=== PATIENT | female | born 1995 | race Caucasian/White ===

== ENCOUNTER 2017-09-26 08:00 | Inpatient (IN) | payer OTHER, SELFPAY ==
[2017-09-26] MEDS: Lactated Ringers 1,000 ML 50 ML IV ×2 (08:45→09:43)
--- NOTE | 2017-09-26 08:48 | PCM.HP.OB ---
- Problem List (1) GBS bacteriuria Status: Acute History Date of Admission: 09/26/17 Final ANUJA: 10/03/17 Final ANUJA Source: US <20 weeks Gestational age: 39 Weeks and 0 Days History of this : No antepartum complications noted. Paient reports small gush of clear fluid at 2130 last night with progressively stronger and more regular contractions. Contractions now q 3 minutes apart. Patient reports +FM. Pertinent Past Medical History: Noncontributory Allergies No Known Allergies Allergy (Verified 10/15/15 09:17) PNV, Iron Supplement Smoking Status: Never smoker Alcohol: None Drug Use: none Number of Fetus(es): 1 Review of Systems Constitutional: Denies: Chills, Fever, Weight Change HEENT: Denies: Head Aches, Sinus Congestion, Sinus Drainage Cardiovascular: Denies: Chest Pain, Palpitations Respiratory: Denies: Cough, Shortness of breath at rest, Sputum production Gastrointestinal: Denies: Abdominal Pain, Nausea, Vomiting Genitourinary: Denies: Dysuria Gynecological: Reports: Vaginal discharge - Small amount clear fluid - c/w possible SROM of amniotic sac Musculoskeletal: Denies: Joint Pain, Joint Tenderness Skin: Denies: Rash, Wounds Neurological: Denies: Numbness, Tingling, Focal weakness Psychiatric: Denies: Anxiety, Depression, Homicidal Ideations, Suicidal Ideations Hematologic/ Lymphatic: Denies: Easy Bruising, Easy Bleeding Physical Exam General: Alert, Oriented x3, No apparent distress Cardiovascular: Regular rate, Regular Rhythm Lungs: Normal air movement Abdomen: Non Tender, Gravid, Appropriate for Gestational Age Extremities:: No edema, Normal pulses Estimated gestational size: Appropriate for gestational size Presentation: Cephalic Cervix Dilation (cm): 6 - Per switchboard operator supervisor Station: 0 Effacement (%): 100 Assessment/Plan Active and Suspected Problems GBS bacteriuria (Acute) A: 22 y/o @ 39 weeks by 1st trimester ultrasound dating P: 1) Admit patient for labor 2) Patient desires epidural - start IV, draw CBC, administer IV fluid bolus of LR 3) Anticipate 4) Dr. Dwaine CISNEROS aware of admission and is in agreement with plan Anahy Fan APRN-EARNEST
[2017-09-26 08:49] VITALS: BMI 25.1
[2017-09-26 08:50] LABS: ROM Internal Control Test YES-OK TO RESULT pt. (Internal QC)
[2017-09-26 08:51] LABS: ROM Patient Test POSITIVE (Negative)
--- NOTE | 2017-09-26 09:01 | HP.PCM_ITS ---
- Problem List (1) GBS bacteriuria Status: Acute History Date of Admission: 09/26/17 Final ANUJA: 10/03/17 Final ANUJA Source: US <20 weeks Gestational age: 39 Weeks and 0 Days History of this : No antepartum complications noted. Paient reports small gush of clear fluid at 2130 last night with progressively stronger and more regular contractions. Contractions now q 3 minutes apart. Patient reports +FM. Pertinent Past Medical History: Noncontributory Allergies No Known Allergies Allergy (Verified 10/15/15 09:17) PNV, Iron Supplement Smoking Status: Never smoker Alcohol: None Drug Use: none Number of Fetus(es): 1 Review of Systems Constitutional: Denies: Chills, Fever, Weight Change HEENT: Denies: Head Aches, Sinus Congestion, Sinus Drainage Cardiovascular: Denies: Chest Pain, Palpitations Respiratory: Denies: Cough, Shortness of breath at rest, Sputum production Gastrointestinal: Denies: Abdominal Pain, Nausea, Vomiting Genitourinary: Denies: Dysuria Gynecological: Reports: Vaginal discharge - Small amount clear fluid - c/w possible SROM of amniotic sac Musculoskeletal: Denies: Joint Pain, Joint Tenderness Skin: Denies: Rash, Wounds Neurological: Denies: Numbness, Tingling, Focal weakness Psychiatric: Denies: Anxiety, Depression, Homicidal Ideations, Suicidal Ideations Hematologic/ Lymphatic: Denies: Easy Bruising, Easy Bleeding Physical Exam General: Alert, Oriented x3, No apparent distress Cardiovascular: Regular rate, Regular Rhythm Lungs: Normal air movement Abdomen: Non Tender, Gravid, Appropriate for Gestational Age Extremities:: No edema, Normal pulses Estimated gestational size: Appropriate for gestational size Presentation: Cephalic Cervix Dilation (cm): 6 - Per tissue specialist Station: 0 Effacement (%): 100 Assessment/Plan Active and Suspected Problems GBS bacteriuria (Acute) A: 22 y/o @ 39 weeks by 1st trimester ultrasound dating P: 1) Admit patient for labor 2) Patient desires epidural - start IV, draw CBC, administer IV fluid bolus of LR 3) Anticipate 4) Dr. Dwaine ICSNEROS aware of admission and is in agreement with plan Anahy Fan APRN-EARNEST
[2017-09-26 09:11] LABS: Hematocrit 35.5 % (37-47); Hemoglobin 12.2 g/dl (12.0-15.0); Mean Corp Hgb Conc 34.4 g/gl (32-36); Mean Corpuscular Hgb 28.8 pg (27.0-32.0); Mean Corpuscular Volume 83.9 fL (81-99); Mean Platelet Vol. 10.3 fl (6.2-12.0); Platelet Count 206 K/mm3 (150-450); RBC Distribution Width CV 12.9 % (11.6-14.6); RBC Distribution Width SD 38.8 fl (35.1-43.9); Red Blood Count 4.23 M/mm3 (4.2-5.4); White Blood Count 15.2 K/mm3 (4.4-11.0)
[2017-09-26 09:12] LABS: Scan Indicated on CBC? Y/N NO
[2017-09-26] MEDS: fentaNYL-bupivacaine (epidural) 100 ML BAG EPIDURAL (10:07)
[2017-09-26] MEDS: Oxytocin 30 units/NS 500 ml 30 UNITS/500 ML IV.SOLN 334 UNITS IV (10:34)
[2017-09-26] MEDS: Methylergonovine 0.2 MG/ML Ampul IM (10:44)
[2017-09-26] MEDS: Oxytocin 30 units/NS 500 ml 30 UNITS/500 ML IV.SOLN 167 UNITS IV (10:52)
--- NOTE | 2017-09-26 11:10 | PCM.OB.VAG ---
- Problem List (1) GBS bacteriuria Status: Resolved Vaginal Delivery Maternal Presentation: Active Labor Patient presented to [facility] reporting SROM at 2130 for clear fluid. Patient also having ctx q 2-5 minutes apart at admission and found to be dilated 6/100/0. Patient progressed uneventfully to C/C/+1 after epidural placement and had urge to push. Amniotic Membrane Rupture Type: Spontaneous at home Rupture of Membrane time: 09/25/17 @ 2130 Amniotic Fluid Description: Clear Final ANUJA: 10/03/17 Final ANUJA Source: US <20 weeks Gestational age: 39 Weeks and 0 Days Date of Procedure: 09/26/17 Pre-Operative Diagnosis: Active Labor, PROM @ 39 weeks Post-Operative Diagnosis: NSVE of viable male Surgery/ Procedure Performed: Spontaneous Vaginal Delivery Anesthesiologist: Debbie Green Type of Anesthesia: Epidural Description of Procedure: Patient pushed well in hands and knees position and delivered viable male infant over intact perineum. head delivered OA, restituted to MAGY then to LOT. Compound posterior hand noted with delivery. shoulders delivered without difficulty followed by body. had spontaneous cry and respirations. Apgars 9 and 9. weight pending. placed [id number] with patient where the baby was dried and stimulated. Signs of placenta separation noted via brisk gush of red blood. Placenta delivered spontaneously with maternal effort via Coffey mechanism intact with 3VC and trailing membranes. Membranes were teased out using ring forceps. FF and midline initially, then continued trickle of blood noted. Vigorous fundal massage continued with initiation of IV Pitocin per protocol. Within 30 seconds continued bleeding noted and pitocin administration was changed to WO administration. PPH cart and methergine and cytotec medications called to be available in room as this provider kept vigorous fundal massage. Brief inspection of vaginal vault yielded no evidence of lacerations. Lower uterine segment initially boggy, but continued to firm up with massage. Urine catheter continued to empty clear yellow urine. Dose of methergine 0.2mg IM x 1 given to help achieve hemostasis. FF midline 2FB below umbilicus. No further heavy bleeding noted. Total EBL = 600cc. Pitocin IV administration returned to standard dosing per protocol. Upon inspection of vaginal vault, again no lacerations noted. No repair done. Sponge and needle count correct. Vaginal sweep was negative. Baby to breast, and skin to skin initiated. Rpt CBC ordered for 6pm this evening. Dr. Isidro notified of delivery and planned management of care. Anahy Fan APRN-EARNEST Presentation: Vertex, MAGY Placental Delivery Description: Spontaneous Placenta Disposition: [facility] Cord Vessel Description: 3 Vessels Cord Entanglement: None Estimated Blood Loss: 600 A gender: Male (1 minute): 9 (5 minute): 9 Episiotomy Description: None Laceration: None Medications given after delivery: IV Pitocin, IM Methergin
--- NOTE | 2017-09-26 11:27 | DCINST_ITS ---
Discharge Diet: No Restrictions Discharge Activity: Return to Normal Activity, May not drive while taking narcotic pain medications., May Shower May resume sexual activity in: 4-6 weeks Additional Activity Instructions:: Nothing in the vagina for 4-6 weeks. You may return to work/school in 6 weeks. Call your doctor if your incision/area has: Continuous Slow Oozing, Sudden Increased Bleeding, Increased Pain/ Swelling, Increased Redness, Foul Smelling Discharge Call your doctor if you observe: Fever of 101 or Higher, Inability to urinate, Inability to have a bowel movement, Using more than one pad per hour Additional Instructions: If you experience any of the following, contact your healthcare provider. * Bleeding that soaks a pad every hour for 2 hours * Fever 100.4 or higher * Unrelieved incision or abdominal pain * Swelling, redness, discharge or bleeding from your incision or episiotomy site * Your incision begins to separate * Problems urinating (including inability to urinate or burning while urinating) . * Visual changes * Severe headache * Flu-like symptoms * Pain or redness in one of both of your breasts * Pain, warmth, tenderness or swelling in your legs, especially the calf area * Frequent nausea and vomiting * Symptoms of depression or anxiety If you experience any of the following, call 911 or go to the nearest Emergency Room. * Chest pain * Problems breathing * Seizure activity * Partial or complete paralysis of a body part, slurred speech, weakness or drooping of the face, or a sudden inability to walk or hold your balance Allergies/Adverse Reactions: Allergies No Known Allergies Allergy (Verified 10/15/15 09:17) Medications to take at Discharge Ondansetron [Zofran] 4 mg PO Q8H PRN PRN 10/15/15 Vits [Prenatabs FA ] 1 tablet PO DAILY 10/15/15 Ferrous Sulfate 325 mg PO DAILY@0800 #30 tablet 10/16/15 Acetaminophen [Tylenol] 1,000 mg PO Q8H PRN PRN tablet 09/26/17 Senna/Docusate Sodium [Senokot-S] 1 - 2 tablet PO DAILY PRN PRN tablet Orders to be completed after discharge: Electric breast pump Location: None Selected Please Follow Up With: Anahy Fan CNM When: Call to make an appointment with your doctor in 6 weeks. If you had elevated Blood Pressure or 4th degree laceration you will need to be seen in 2 weeks. Proposed Discharge Date: 09/28/17
[2017-09-26 13:30] VITALS: BP 117/60; PULSE 96; RESP 16; TEMP 36.8; O2SAT 97
[2017-09-26] MEDS: 0.9% Saline Lock 10 ML Syringe IV (13:40)
[2017-09-26 16:01] VITALS: BP 148/66; PULSE 101; RESP 16; TEMP 36.9; O2SAT 97
[2017-09-26 18:15] LABS: Hemoglobin 10.9 g/dl (12.0-15.0); Mean Corp Hgb Conc 34.1 g/gl (32-36); Mean Corpuscular Hgb 28.3 pg (27.0-32.0); Mean Corpuscular Volume 83.1 fL (81-99); Mean Platelet Vol. 10.5 fl (6.2-12.0); Platelet Count 225 K/mm3 (150-450); RBC Distribution Width CV 13.3 % (11.6-14.6); RBC Distribution Width SD 40.2 fl (35.1-43.9); Red Blood Count 3.85 M/mm3 (4.2-5.4); White Blood Count 16.5 K/mm3 (4.4-11.0)
[2017-09-26 18:16] LABS: Scan Indicated on CBC? Y/N NO
[2017-09-26] MEDS: Senna/Docusate Sodium 1 Tablet PO (18:26)
[2017-09-26 20:00] VITALS: BP 108/58; PULSE 88; RESP 16; TEMP 37.2
[2017-09-26] MEDS: Dibucaine 30 GM Tube 1 APPLIC TOPICAL (22:38)
[2017-09-27] VITALS: PULSE 85; RESP 17; TEMP 36.9
--- NOTE | 2017-09-27 07:21 | PN.OBGYN_ITS ---
Subjective: Patient sitting up in bed reporting no issues at this time. Baby well, no issues with latch. Patient denies any further heavy bleeding. Denies scotoma, LAURENT, dizziness. Also denies issues with urination or ambulation. + flatus noted by patient. Objective: Hgb = 12.2 --> 10.9 Nipples without cracks/blisters Abdomen NT x 4 quadrants, FF midline @ 2FB below umbilicus +2/4 reflexes in LE, no edema Perineum intact Scant Rubra Lochia - Physical Exam General: Alert, Oriented x3, Cooperative HEENT: Atraumatic, Normocephalic Neck: Supple Lungs: Normal air movement Cardiovascular: Regular rate, No murmurs Abdomen: Soft, Non Tender Extremities: No edema, Capillary Refill Less than 3 Seconds Skin: No rashes, No breakdown Musculoskeletal: No Tenderness to Palpation of Joints or Extremities Neurological: Cranial nerves II-XII grossly intact Psych/Mental Status: Normal Affect, Appropriate, Alert and oriented to time, place, person, mood and affect Vital Signs Temp Pulse Resp BP Pulse Ox 98.5 F 85 17 108/58 L 97 09/27/17 00:00 09/27/17 00:00 09/27/17 00:00 09/26/17 20:00 09/26/17 16:01 Oxygen Delivery Method Room Air Weight: 146 lb 9.718 oz Body Mass Index (BMI) 25.1 Intake and Output for Last 24 Hours 09/25/17 09/26/17 09/27/17 23:59 23:59 23:59 Intake Total 1034 / 1034 Output Total 650 / 650 Balance 384 / 384 Laboratory Tests Past 24 Hrs 09/26/17 09/26/17 09/26/17 08:30 08:45 08:45 WBC 15.2 H RBC 4.23 Hgb 12.2 Hct 35.5 L MCV 83.9 MCH 28.8 MCHC 34.4 RDW 12.9 RDW Differential 38.8 Plt Count 206 MPV 10.3 Vag Amniotic Fld Detect POSITIVE H Blood Type A POSITIVE Antibody Screen NEGATIVE 09/26/17 18:00 WBC 16.5 H RBC 3.85 L Hgb 10.9 L Hct 32.0 L MCV 83.1 MCH 28.3 MCHC 34.1 RDW 13.3 RDW Differential 40.2 Plt Count 225 MPV 10.5 Vag Amniotic Fld Detect Blood Type Antibody Screen Medical Necessity - Tobacco Use Smoking Status: Never smoker Assessment/Plan 22 y/o G2 now P2, s/p with complication of immediate PPH, PPD #1 P: 1) Continue PP orders at this time 2) No evidence of anemia at this time - patient remains asymptomatic 3) Anticipate discharge to home tomorrow wit infant d/t inadequate GBS prophylaxis treatment for Anahy Fan CNM
[2017-09-27 07:55] VITALS: BP 123/59; PULSE 89; RESP 18; TEMP 36.4
[2017-09-27 13:04] VITALS: BP 107/61; PULSE 77; RESP 18; TEMP 36.7
[2017-09-27 20:56] VITALS: BP 124/60; PULSE 88; RESP 16; TEMP 37.1
[2017-09-27] MEDS: Senna/Docusate Sodium 1 Tablet PO (21:05)
[2017-09-28 02:25] VITALS: BP 110/58; PULSE 78; RESP 18; TEMP 36.7
[2017-09-28 08:58] VITALS: BP 117/70; PULSE 76; RESP 16; TEMP 36.7
--- NOTE | 2017-09-28 09:04 | PCM.PN.OB ---
Subjective: Doing well per patient and nursing staff. Ambulating and taking PO without difficulty. Voiding and passing flatus. Pain controlled. without difficulty. Denies any headache, visual changes, chest pain, shortness of breath, leg pain, or increased bleeding/clots. Feeling well, very happy with delivery experience. Discharge home today. - Physical Exam General: Alert, Oriented x3, Cooperative Lungs: Clear to auscultation, Normal air movement, No rhonchi, No wheeze Cardiovascular: Regular rate, Regular Rhythm, No murmurs Abdomen: Bowel Sounds Present, Soft, Non Tender, - - Fundus firm 2 below U Extremities: No edema, - - Lenora's negative Psych/Mental Status: Normal Affect, Appropriate Vital Signs Temp Pulse Resp BP Pulse Ox 98.1 F 76 16 117/70 97 09/28/17 08:58 09/28/17 08:58 09/28/17 08:58 09/28/17 08:58 09/26/17 16:01 Oxygen Delivery Method Room Air Weight: 146 lb 9.718 oz Body Mass Index (BMI) 25.1 Intake and Output for Last 24 Hours 09/26/17 09/27/17 09/28/17 23:59 23:59 23:59 Intake Total 1034 / 1034 Output Total 650 / 650 Balance 384 / 384 Medical Necessity - Tobacco Use Smoking Status: Never smoker Assessment/Plan A: PPD#2 GBS positive P: 1) Discharge and instructions given. 2) D/C home today 3) Follow up in 6 weeks for visit.
--- NOTE | 2017-09-28 09:08 | PN.OBGYN_ITS ---
Subjective: Doing well per patient and nursing staff. Ambulating and taking PO without difficulty. Voiding and passing flatus. Pain controlled. without difficulty. Denies any headache, visual changes, chest pain, shortness of breath , leg pain, or increased bleeding/clots. Feeling well, very happy with delivery experience. Discharge home today. - Physical Exam General: Alert, Oriented x3, Cooperative Lungs: Clear to auscultation, Normal air movement, No rhonchi, No wheeze Cardiovascular: Regular rate, Regular Rhythm, No murmurs Abdomen: Bowel Sounds Present, Soft, Non Tender, - - Fundus firm 2 below U Extremities: No edema, - - Lenora's negative Psych/Mental Status: Normal Affect, Appropriate Vital Signs Temp Pulse Resp BP Pulse Ox 98.1 F 76 16 117/70 97 09/28/17 08:58 09/28/17 08:58 09/28/17 08:58 09/28/17 08:58 09/26/17 16:01 Oxygen Delivery Method Room Air Weight: 146 lb 9.718 oz Body Mass Index (BMI) 25.1 Intake and Output for Last 24 Hours 09/26/17 09/27/17 09/28/17 23:59 23:59 23:59 Intake Total 1034 / 1034 Output Total 650 / 650 Balance 384 / 384 Medical Necessity - Tobacco Use Smoking Status: Never smoker Assessment/Plan A: PPD#2 GBS positive P: 1) Discharge and instructions given. 2) D/C home today 3) Follow up in 6 weeks for visit.
== END 2017-09-28 11:21 | disposition home or self-care (01) | DRG 774 ==
PROVIDERS: Advanced Practice Midwife; Admitting Provider Obstetrics & Gynecology; Visit Provider Obstetrics & Gynecology
DX: O99.824 Streptococcus B carrier state complicating childbirth (principal); O72.1 Other immediate postpartum hemorrhage; Z3A.39 39 weeks gestation of pregnancy; Z37.0 Single live birth
CPT/HCPCS: 59025; 59050; 84112; 85027; 86850; 86900; 99218; J7120; A4216; G0378

== ENCOUNTER → 2018-01-30 21:19 | Outpatient (CLI) | payer OTHER, SELFPAY ==
[2018-01-30 21:42] LABS: Absolute Lymphocyte Count 5.59 X10^3/ul (0.83-4.51); Eosinophil# 0.02 X10^3/uL; Eosinophils% 0.2 % (0-5); Hematocrit 36.8 % (37-47); Hemoglobin 13.4 g/dl (12.0-15.0); Lymphocyte # 5.59 X10^3/ul (4.0); Lymphocyte % 66.3 % (19-41); Mean Corp Hgb Conc 36.4 g/gl (32-36); Mean Corpuscular Hgb 30.6 pg (27.0-32.0); Mean Platelet Vol. 12.4 fl (6.2-12.0); Monocyte# 0.88 X10^3/uL; Monocyte% 10.4 % (0-10); Platelet Count 156 K/mm3 (150-450); RBC Distribution Width CV 13.5 % (11.6-14.6); RBC Distribution Width SD 39.2 fl (35.1-43.9); Red Blood Count 4.38 M/mm3 (4.2-5.4); White Blood Count 8.4 K/mm3 (4.4-11.0)
[2018-01-30 21:53] LABS: Thyroid Stim Hormone (TSH) 1.78 uIU/mL (0.358-3.74)
[2018-01-30 22:08] LABS: Absolute Neutrophil Count 4.9 X10^3/uL (2.0-7.7); Basophil# 0.46 X10^3/uL; Differential Indicated SCAN CRITERIA MET; Neutrophil # 1.32 X10^3/uL (2.7-7.7); POSITIVE COUNT NO; POSITIVE DIFFERENTIAL YES; POSITIVE MORPHOLOGY YES
[2018-01-30 22:10] LABS: Platelet Estimate ADEQUATE (ADEQ); Red Cell Morphology NORM C+C NORMAL (NORM C&C); Toxic Granulation RARE
[2018-02-01 10:01] LABS: Pathologist Review Reviewed
[2018-02-02 14:09] LABS: EBV Acute VCA IgM > 160.0 U/mL (0.0-35.9); EBV Early Antigen IgG 81.6 U/mL (0.0-8.9); EBV Nuclear Antigen IgG < 18.0 U/mL (0.0-17.9); EBV-VCA IgG 56.3 U/mL (0.0-17.9)
== END ==
PROVIDERS: Visit Provider Nurse Practitioner
DX: R53.83 Other fatigue (principal); D64.9 Anemia, unspecified; R50.9 Fever, unspecified
CPT/HCPCS: 84443; 85025; 86663; 86664; 86665

== ENCOUNTER → 2023-04-02 | Outpatient (CLI) | payer SELFPAY ==
[2023-04-02 22:03] LABS: Absolute Lymphocyte Count 3.01 X10^3/uL (0.83-4.51); Absolute Neutrophil Count 4.6 X10^3/uL (2.0-7.7); Basophil# 0.08 X10^3/uL; Basophil% 0.9 % (0-1); Eosinophil# 0.22 X10^3/uL; Eosinophils% 2.6 % (0-5); Hematocrit 39.7 % (37-47); Hemoglobin 13.4 g/dL (12.0-15.0); Lymphocyte # 3.01 X10^3/ul (0.83-4.51); Lymphocyte % 35.3 % (19-41); Mean Corp Hgb Conc 33.8 g/dL (32-36); Mean Corpuscular Hgb 29.3 pg (27.0-32.0); Mean Corpuscular Volume 86.9 fL (81-99); Mean Platelet Vol. 10.3 fl (6.2-12.0); Monocyte# 0.62 X10^3/uL; Monocyte% 7.3 % (0-10); NRBC Flagged by Analyzer 0 % (0-5); Neutrophil # 4.59 X10^3/uL (2.7-7.7); Neutrophil % 53.8 % (47-70); Platelet Count 296 K/mm3 (150-450); RBC Distribution Width CV 12.4 % (11.6-14.6); RBC Distribution Width SD 39.4 fl (35.1-43.9); Red Blood Count 4.57 M/mm3 (4.2-5.4); White Blood Count 8.5 K/mm3 (4.4-11.0)
[2023-04-02 22:26] LABS: ALB/GLOB Ratio 1.3 RATIO (0.9-2.4); AST(SGOT) 13 U/L (15-37); Alanine Aminotransfer ALT/SGPT 21 U/L (13-56); Albumin, Serum 4.1 g/dL (3.2-5.0); Alkaline Phosphatase 46 U/L (45-117); Anion Gap 5 (5-15); BUN 13 mg/dL (7-18); Chloride 108 mmol/L (98-107); Creatinine, Serum 0.76 mg/dL (0.55-1.02); EST Glomerular Filtration Rate 96 mL/min (>60); Est Glom Filt Rate - Afr Amer 116 mL/min (>60); Globulin 3.2 g/dL (2.2-4.2); Glucose 102 mg/dL (74-106); Protein, Total 7.3 g/dL (6.4-8.2); Sodium Level 140 mmol/L (136-145); Thyroid Stim Hormone (TSH) 1.37 uIU/mL (0.358-3.74)
[2023-04-03 08:22] LABS: Vitamin B12 871 pg/mL (211-911)
== END | disposition home or self-care (01) ==
PROVIDERS: PCP Nurse Practitioner; Visit Provider Nurse Practitioner
DX: R42 Dizziness and giddiness (principal); R00.2 Palpitations
CPT/HCPCS: 80053; 82533; 82607; 84443; 85025